=== PATIENT | female | born 1940 | race Caucasian/White ===

== ENCOUNTER 2017-10-13 10:34 | Inpatient (IN) | payer MEDICARE, MEDICAID ==
[~2017-10-13] VITALS: Ht 157.5 cm; Wt 83.9 kg
[2017-10-13 10:43] VITALS: BP 122/41
--- NOTE | 2017-10-13 10:49 | NUR ---
PT AMBULATES WITH ASSISTANCE TO BED 7
--- NOTE | 2017-10-13 10:52 | NUR ---
REPORT GIVEN TO ARYAN CUMMINGS
--- NOTE | 2017-10-13 10:55 | NUR ---
PATIENT PRESENTS TO ED WITH COMPLAINTS OF ABDOMINAL PAIN THAT RADIATES TO BACK. PATIENT STATES SHE HAD DIARRHEA THIS MORNING AND NAUSEA FOR 3 DAYS. BOWEL SOUNDS HYPERACTIVE IN ALL 4 QUADS. PT DENIES ANY FEVER, CP, SOB, OR COUGH AT THIS TIME; PATIENT STATES PAIN OF 8/10 AT THIS TIME; VSS; PATIENT POSITIONED FOR COMFORT; HOB ELEVATED; BEDRAILS UP X2; BED DOWN. ER MD MADE AWARE OF PT STATUS.
[2017-10-13] MEDS ORDERED: ONDANSETRON 4 MG/2 ML VIAL IVP ONE (11:05)
[2017-10-13] MEDS ORDERED: MORPHINE SULFATE 4 MG/ML SYR IVP ONE (11:05)
[2017-10-13] MEDS ORDERED: NACL 0.9% 1,000 ML IV ONE (11:05)
[2017-10-13 11:31] LABS: APPEARANCE,URINE CLEAR (CLEAR); BILIRUBIN,URINE NEGATIVE (NEGATIVE); BLOOD, URINE NEGATIVE (NEGATIVE); COLOR,URINE YELLOW (YELLOW); LEUKOCYTE ESTERASE ,URINE NEGATIVE (NEGATIVE); NITRITE, URINE NEGATIVE (NEGATIVE); PH,URINE 6.5 (5.0-9.0); UGLUCOSE NEGATIVE (NEGATIVE)
[2017-10-13 11:33] LABS: HEMATOCRIT 29.2 % (36-48); HEMOGLOBIN 9.4 g/dL (12.0-16.0); MEAN CORPUSCULAR HEMOGLOBIN 29 pg (27-31); MEAN CORPUSCULAR HGB CONC 32 g/dL (33-37); MEAN CORPUSCULAR VOLUME 88.5 fL (80-94); PLATELET COUNT (AUTO) 237 K/uL (140-450); RED CELL DISTRIBUTION WIDTH 14.2 % (11.6-13.7); WHITE BLOOD COUNT (AUTO) 6.8 K/uL (4.8-10.8)
[2017-10-13 11:34] LABS: BASOPHILS % (AUTO) 1.8 % (0.0-2.0); EOSINOPHILS % (AUTO) 1.6 % (0.0-4.0); LYMPHOCYTES % (AUTO) 25.3 % (20.5-51.1); NEUTROPHILS % (AUTO) 63.3 % (42.2-75.2)
[2017-10-13 11:38] LABS: ANION GAP 8.5 (8-16); CARBON DIOXIDE 27.5 mmol/L (21-32); CHLORIDE 105 mmol/L (98-107); CREATININE 1.6 mg/dL (0.6-1.3); GLUCOSE 105 mg/dL (74-106); SODIUM SERUM 136 mmol/L (136-145); UREA NITROGEN, BLOOD 50 mg/dL (7-18)
[2017-10-13 11:39] LABS: PROTHROMBIN TIME 10.9 secs (10.8-13.4)
[2017-10-13 11:46] LABS: ALBUMIN 3.3 g/dL (3.4-5.0); AMYLASE 54 U/L (25-115); ASPARTATE AMINOTRANSFERASE 10 U/L (15-37); LIPASE 145 U/L (73-393); TOTAL BILIRUBIN 0.2 mg/dL (0.0-1.0)
--- NOTE | 2017-10-13 12:00 | NUR ---
PATIENT TAKEN TO CT
[2017-10-13] MEDS ORDERED: PIPERACILLIN/TAZOBACTAM 3.375 GM in DEXTROSE 5% 50 ML IV ONE (13:00)
[2017-10-13] MEDS ORDERED: PIPERACILLIN/TAZOBACTAM 3.375 GM VIAL IV ONE (13:06)
[2017-10-13] MEDS ORDERED: ONDANSETRON 4 MG/2 ML VIAL IVP PRN (13:55)
[2017-10-13] MEDS ORDERED: MORPHINE SULFATE 2 MG/ML SYR IVP PRN (13:55)
[2017-10-13] MEDS ORDERED: LORazepam 2 MG/ML VIAL IVP PRN (13:55)
[2017-10-13] MEDS ORDERED: LEVO0.0216 PO (14:20)
[2017-10-13] MEDS ORDERED: FENO145T PO (14:20)
[2017-10-13] MEDS ORDERED: OMEP20TC12 PO (14:20)
[2017-10-13] MEDS ORDERED: VALS160T2 PO (14:20)
[2017-10-13] MEDS ORDERED: CLOP75TA55 PO (14:20)
[2017-10-13] MEDS ORDERED: LISI5TAB18 PO (14:20)
[2017-10-13] MEDS ORDERED: IBAN150T PO (14:20)
[2017-10-13] MEDS ORDERED: METF500T PO (14:20)
[2017-10-13] MEDS ORDERED: GABA100C PO (14:20)
[2017-10-13] MEDS ORDERED: MIRABULK PO (14:20)
[2017-10-13] MEDS ORDERED: SOLI10TA PO (14:20)
[2017-10-13] MEDS ORDERED: COROTSUS OT (14:20)
--- NOTE | 2017-10-13 15:21 | NUR ---
PT TAKEN TO FLOOR BY ARYAN CUMMINGS AND LULU BETANCOURT
--- NOTE | 2017-10-13 15:25 | NUR ---
Patient will be admitted to care of dr. phillips. Admited to [facility]. Will go to [facility]. Belongings list completed. Report to ARYAN DUNN.
--- NOTE | 2017-10-13 15:30 | NUR ---
RECEIVED PT REPORT FROM ER NURSE AT BEDSIDE. PT IS AAOX4. CC: ABD PAIN. GEN WEAKNESS. DX MISPLACED BILIARY STENT. IV NOTED TO RIGHT HAND 24 G, INTACT AND ASYMPTOMATIC. 1L NS BOLUS RECEIVED IN ER. SKIN INTACT, NO ACTIVE WOUND. VITALS TAKEN, MRSA SCREENING DONE. BED IN LOWEST POSITION. FALLS PRECAUTIONS IN PLACE. CALL LIGHT WITHIN REACH.
[2017-10-13] MEDS: DEXT 5% /NACL 0.9% 1,000 ML IV SCH (15:40)
--- NOTE | 2017-10-13 16:00 | NUR ---
ADMISSION PAPERWORK COMPLETED WITH THE HELP FROM SOURCING MANAGER PHONE. SOURCING MANAGER #[phone].
[2017-10-13] MEDS: MORPHINE SULFATE 4 MG/ML SYR IVP PRN (16:18)
[2017-10-13 16:30] VITALS: BP 110/40
--- NOTE | 2017-10-13 16:30 | NUR ---
SPOKE WITH DR MCMAHON. REPORTED PT C/O RIGHT SHOULDER PAIN. SHE STATED THAT ER NURSE GIVE HER SOME MEDICATION IN HER RIGHT HAND IV. AFTERWARDS, SHE FELT BURNING IN THER SHOULDER AND AFTER SHE WOKE UP, SHE COULDN'T LIFT UP THE ARM DUE TO THE PAIN. DR MCMAHON ORDERED TROP DRAW AND X RAY SHOULDER.
--- NOTE | 2017-10-13 17:00 | NUR ---
SPOKE WITH DR MCFARLANE, NEPHRO SPECIALIST. REPORTED BUN 50 CREAT 1.6, MD ORDERED HANKINS AND STRICT I/O AND URINE SODIUM.
--- NOTE | 2017-10-13 17:40 | NUR ---
NURSE AR PUT IN THE HANKINS. PT TOLERATED WELL.
[2017-10-13] MEDS ORDERED: DEXTROSE 50% 50 ML SYR IVP PRN (17:55)
[2017-10-13 18:01] LABS: ANION GAP 11.2 (8-16); CARBON DIOXIDE 25.3 mmol/L (21-32); CHLORIDE 107 mmol/L (98-107); CREATININE 1.5 mg/dL (0.6-1.3); GLUCOSE 108 mg/dL (74-106); POTASSIUM 4.5 mmol/L (3.5-5.1); SODIUM SERUM 139 mmol/L (136-145); UREA NITROGEN, BLOOD 44 mg/dL (7-18)
--- NOTE | 2017-10-13 18:30 | NUR ---
PT STATED HER ARM FELT A LOT BETTER. SHE LIFTED UP HER ARM. BOTH HAND ENVIRONMENTAL HEALTH AND SAFETY LEADER HAS BEEN EQUAL STRENGTH SINCE SHE GOT TO THE FLOOR.
--- NOTE | 2017-10-13 19:30 | NUR ---
ENDORSED PT TO SENIOR CLINICAL STUDY MANAGER RN. PT IN STABLE CONDITION.
--- NOTE | 2017-10-13 19:31 | NUR ---
RECEIVED REPORT FROM DAYSHIFT NURSE AT BEDSIDE FOR CONTINUITY OF CARE. PT AAOX4 PAL[place]AN SPEAKING ONLY. PT HAS HANKINS IN PLACE IS FALL RISK. IV NOTED RIGHT HAND 24G D5 NACL 50ML/HR. BLE PITTING EDEMA +2. SKIN INTACT. NPO. BED LOWERED CALL LIGHT WITHIN REACH WILL CONTINUE TO MONITOR.
--- NOTE | 2017-10-13 20:00 | NUR ---
PT AWARE OF NPO STATUS AND STRICT I & O STATUS. WILL CONTINUE TO MONITOR.
[2017-10-13 20:01] VITALS: BP 117/35
[2017-10-13] MEDS: BLOOD GLUCOSE MONITORING 1 DEV DEV FS SCH (20:36)
[2017-10-13] MEDS: PIPER/TAZO 2.25GM/D5W PREMIX 50 ML IV SCH (20:36)
[2017-10-13] MEDS ORDERED: PIPERACILLIN/TAZOBACTAM 2.25 GM in DEXTROSE 5% 50 ML IV SCH (21:00)
[2017-10-14] VITALS: BP 121/41
--- NOTE | 2017-10-14 02:03 | NUR ---
DR MCMAHON STATED DR COOK WILL PERFORM ERCP AND CONSENT HAS BEEN SIGNED AND IN PT CHART. UNAWARE OF TIME OF PROCEDURE.
[2017-10-14] MEDS: PIPER/TAZO 2.25GM/D5W PREMIX 50 ML IV SCH ×3 (05:28→21:03)
[2017-10-14] MEDS: BLOOD GLUCOSE MONITORING 1 DEV DEV FS SCH ×4 (05:28→20:18)
[2017-10-14 05:56] VITALS: BP 111/43
--- NOTE | 2017-10-14 07:15 | NUR ---
ENDORSED REPORT TO DAYSHIFT NURSE AT BEDSIDE FOR CONTINUITY OF CARE.
--- NOTE | 2017-10-14 07:30 | NUR ---
RECEIVED PT REPORT FROM RETAIL COORDINATOR NURSE AT BEDSIDE. PT IS AAOX4. DENIES PAIN AT THIS TIME. IV NOTED TO RIGHT HAND 24 G, INTACT AND ASYMPTOMATIC, INFUSING NS 50ML/HR. SKIN INTACT, NO ACTIVE WOUND. VITALS TAKEN. BED IN LOWEST POSITION. FALLS PRECAUTIONS IN PLACE. CALL LIGHT WITHIN REACH.
[2017-10-14 08:00] VITALS: BP 114/45
--- NOTE | 2017-10-14 08:59 | NUR ---
PATIENT HAS BEEN SCREENED AND CATEGORIZED MODERATE NUTRITION RISK. PATIENT WILL BE SEEN WITHIN 3-5 DAYS OF ADMISSION. 10/16/17 10/18/[address]
[2017-10-14 09:26] LABS: BASOPHILS % (AUTO) 0.6 % (0.0-2.0); EOSINOPHILS # (AUTO) 0.1 K/uL (0-0.4); EOSINOPHILS % (AUTO) 1.6 % (0.0-4.0); HEMOGLOBIN 9.3 g/dL (12.0-16.0); LYMPHOCYTES # (AUTO) 1.1 K/uL (2.5-16.5); LYMPHOCYTES % (AUTO) 16.6 % (20.5-51.1); MEAN CORPUSCULAR HEMOGLOBIN 29 pg (27-31); MEAN CORPUSCULAR HGB CONC 32 g/dL (33-37); MEAN CORPUSCULAR VOLUME 89.3 fL (80-94); MONOCYTES # (AUTO) 0.5 K/uL (0.8-1.0); MONOCYTES % (AUTO) 8.2 % (1.7-9.3); NEUTROPHILS # (AUTO) 4.7 K/uL (1.8-7.7); PLATELET COUNT (AUTO) 192 K/uL (140-450); RED BLOOD CELL COUNT(AUTO) 3.24 MIL/uL (4.20-5.40); RED CELL DISTRIBUTION WIDTH 14.7 % (11.6-13.7); WHITE BLOOD COUNT (AUTO) 6.4 K/uL (4.8-10.8)
[2017-10-14 09:40] LABS: ALBUMIN 3.7 g/dL (3.4-5.0); ANION GAP 1.9 (8-16); ASPARTATE AMINOTRANSFERASE 77 U/L (15-37); CARBON DIOXIDE 27.5 mmol/L (21-32); CHLORIDE 105 mmol/L (98-107); CREATININE 1.5 mg/dL (0.6-1.3); GLUCOSE 129 mg/dL (74-106); POTASSIUM 4.4 mmol/L (3.5-5.1); SODIUM SERUM 130 mmol/L (136-145); TOTAL BILIRUBIN 0.4 mg/dL (0.0-1.0); UREA NITROGEN, BLOOD 33 mg/dL (7-18)
--- NOTE | 2017-10-14 09:59 | NUR ---
SUYAPA NOTE INITIAL REVIEW FAXED TO [facility] [phone] ANTONIO # [phone]. SPOKE WITH KACEY ALVAREZ AND GAVE HER A VERBAL CLINICAL UPDATE ON THE PATIENT. Addendum: 10/14/17 at 1014 by Fabiana Osman CM FAXED ORDER HIGH RISK CLINIC FF UP, HOME HEALTH EV TO [facility] [phone] ANTONIO # [phone]
[2017-10-14] MEDS: MORPHINE SULFATE 4 MG/ML SYR IVP PRN (10:49)
--- NOTE | 2017-10-14 11:42 | NUR ---
SUYAPA NOTE PER KACEY ALVAREZ PH# [phone], SHE WILL ARRANGE PATIENT'S HIGH RISK CLINIC FOLLOW UP AND HOME HEALTH EV Addendum: 10/14/17 at 1222 by Fabiana Osman CM NO DC ORDER AT THIS TIME. PER 'S ORDER, SEND MED RECONCILIATION TO FAX [phone]. KACEY ALVAREZ PH# [phone]. CHARGE NURSE RAFI BARKER
[2017-10-14 12:00] VITALS: BP 116/44
--- NOTE | 2017-10-14 12:30 | NUR ---
MADE PT AWARE THE ERCP IS AT 1400. PT VERBALIZED UNDERSTANDING. NO QUESTIONS AT THIS TIME.
[2017-10-14] MEDS: DEXT 5% /NACL 0.9% 1,000 ML IV SCH (12:45)
--- NOTE | 2017-10-14 13:30 | NUR ---
PT HAS BEEN TRANSPORTED TO [place].
--- NOTE | 2017-10-14 14:16 | NUR ---
SUYAPA ENAMORADO RECEIVED CALL FROM TARA OF [facility]# [phone] WHO STATED THAT THEY HAVE SPOKEN WITH KACEY ALVAREZ AND [facility] IS ACCEPTING THE PATIENT AND WILL HAVE A NURSE TO SEE PATIENT WHEN DISCHARGED. I CONFIRMED THIS WITH KACEY ALVAREZ AND I ALSO INFORMED CHARGE NURSE RAFI TO GIVE [facility] TARA/CHRIS PH# [phone] A CALL TO INFORM THEM ONCE WE HAVE A DC ORDER. SPOKE WITH KACEY ALVAREZ PH# [phone] TO FOLLOW UP ON SCHEDULE FOR HIGH RISK CLINIC FOLLOW UP. PER KACEY ALVAREZ SHE IS STILL WORKING ON IT AND I GAVE HER THE NUMBER TO THE NURSING STATION WHERE PATIENT IS IN CASE SHE WILL HAVE A SCHEDULE FOR HIGH RISK CLINIC FOLLOW UP. KACEY ALVAREZ SAID THAT KACEY WILL CALL THE PATIENT AND KACEY ALVAREZ WILL ALSO CALL THE NURSING STATION WHERE PATIENT IS ONCE SHE HAS THE SCHEDULE FOR THE PATIENT'S HIGH RISK CLINIC FOLLOW UP. CHARGE NURSE RAFI AWARE.
[2017-10-14] MEDS ORDERED: ONDANSETRON 4 MG/2 ML VIAL IVP PRN (14:45)
[2017-10-14] MEDS ORDERED: HYDROmorphone 1 MG/ML AMP IVP PRN (14:45)
[2017-10-14] MEDS ORDERED: BLOOD GLUCOSE MONITORING 1 DEV DEV FS SCH (14:45)
--- NOTE | 2017-10-14 15:40 | NUR ---
PT BACK TO FLOOR. NEW IV ON RIGHT NECK. FLUSHED, BLOOD RETURN GOOD. DC'D IV CATH ON THE RIGHT HAND, TIP INTACT, PRESSURE APPLIED.
[2017-10-14 16:00] VITALS: BP 130/62
--- NOTE | 2017-10-14 16:00 | NUR ---
CHARGE NURSE RAFI CALLED DR COOK, PT WILL BE STAYING FOR [facility] TOMORROW IF STABLE. MADE DR MCMAHON AWARE.
[2017-10-14] MEDS: INSULIN LISPRO SLIDING SCALE 100 UNITS/ML VIAL SUBQ PRN ×2 (17:45→20:20)
--- NOTE | 2017-10-14 19:24 | NUR ---
ENDORSE PT TO CENTER MEDICAL AND LAB DIRECTOR. PT IN STALE CONDITION.
--- NOTE | 2017-10-14 19:25 | NUR ---
REPORT RECEIVED FROM AM SHIFT AT BEDSIDE. PT IN STABLE CONDITION. AAOX4. INTRODUCED SELF TO PT AND FAMILY. BOARD UPDATED. IV SITE PATENT AND INTACT 22G ON THE RIGHT NECK RUNNING D5NS AT 50ML/HR. SKIN WARM, DRY, AND INTACT WITH NO OPEN WOUNDS. HANKINS IS DRAINING PROPERLY. TELE MONITORING. BED LOCKED IN LOW POSITION. CALL CLEMENTS WITHIN REACH. WILL CONTINUE TO MONITOR.
[2017-10-14 20:00] VITALS: BP 138/60
--- NOTE | 2017-10-14 20:20 | NUR ---
BS 179. HUMALOG 2 UNITS GIVEN.
--- NOTE | 2017-10-14 21:00 | NUR ---
SEBAS RUBIO. NEURONTIN AND LACTULOSE GIVEN. PT TOLERATED WELL.
[2017-10-14] MEDS: LACTULOSE 20 GM/30 ML UDC PO SCH (21:03)
[2017-10-14] MEDS: GABAPENTIN 100 MG CAP PO SCH (21:03)
--- NOTE | 2017-10-14 23:30 | NUR ---
VS TAKEN. PT SLEEPING BUT EASILY AROUSABLE. WILL CONTINUE TO MONITOR.
[2017-10-15] VITALS: BP 129/57
--- NOTE | 2017-10-15 02:00 | NUR ---
PT SLEEPING LEFT LATERAL. NO S/S OF DISTRESS SEEN. WILL CONTINUE TO MONITOR.
[2017-10-15 04:00] VITALS: BP 150/57
[2017-10-15] MEDS: PIPER/TAZO 2.25GM/D5W PREMIX 50 ML IV SCH (04:24)
[2017-10-15] MEDS: BLOOD GLUCOSE MONITORING 1 DEV DEV FS SCH ×2 (05:55→11:30)
[2017-10-15] MEDS: DEXT 5% /NACL 0.9% 1,000 ML IV SCH (05:55)
--- NOTE | 2017-10-15 05:55 | NUR ---
BS 123. NO INSULIN COVERAGE NEEDED. SYNTHROID GIVEN. PT TOLERATED WELL.
[2017-10-15] MEDS ORDERED: LEVOTHYROXINE 0.025 MG TAB PO SCH (06:30)
--- NOTE | 2017-10-15 07:20 | NUR ---
REPORT GIVEN TO AM NURSE. PT IN STABLE CONDITION.
--- NOTE | 2017-10-15 07:25 | NUR ---
RECEIVED PT ON BED, AAOX4. NO SOB NOTED. NO C/O PAIN AT THIS TIME. IV TO RT NECK PATENT AND INTACT. CHEST CLEAR. ABDOMEN SOFT, BOWEL SOUNDS PRESENT. WITH HANKINS DRAINING MODERATE AMOUNTS OF CLEAR YELLOW URINE. + 1 EDEMA NOTED ON BLE. INSTRUCTED PT TO CALL FOR ASSISTANCE, CALL LIGHT WITHIN REACH, PT VERBALIZED UNDERSTANDING.
[2017-10-15 07:48] LABS: BASOPHILS % (AUTO) 0.5 % (0.0-2.0); EOSINOPHILS # (AUTO) 0.2 K/uL (0-0.4); EOSINOPHILS % (AUTO) 2.4 % (0.0-4.0); HEMATOCRIT 28.4 % (36-48); HEMOGLOBIN 9.2 g/dL (12.0-16.0); LYMPHOCYTES # (AUTO) 1.4 K/uL (2.5-16.5); LYMPHOCYTES % (AUTO) 21.7 % (20.5-51.1); MEAN CORPUSCULAR HEMOGLOBIN 29 pg (27-31); MEAN CORPUSCULAR HGB CONC 32 g/dL (33-37); MEAN CORPUSCULAR VOLUME 89.2 fL (80-94); MONOCYTES # (AUTO) 0.4 K/uL (0.8-1.0); MONOCYTES % (AUTO) 6.9 % (1.7-9.3); NEUTROPHILS # (AUTO) 4.4 K/uL (1.8-7.7); NEUTROPHILS % (AUTO) 68.5 % (42.2-75.2); PLATELET COUNT (AUTO) 188 K/uL (140-450); RED BLOOD CELL COUNT(AUTO) 3.18 MIL/uL (4.20-5.40); RED CELL DISTRIBUTION WIDTH 14.9 % (11.6-13.7); WHITE BLOOD COUNT (AUTO) 6.5 K/uL (4.8-10.8)
[2017-10-15 08:00] VITALS: BP 125/55
[2017-10-15 08:10] LABS: ALBUMIN 2.9 g/dL (3.4-5.0); ANION GAP 10.2 (8-16); ASPARTATE AMINOTRANSFERASE 31 U/L (15-37); CARBON DIOXIDE 26.8 mmol/L (21-32); CHLORIDE 107 mmol/L (98-107); CREATININE 1.3 mg/dL (0.6-1.3); GLUCOSE 121 mg/dL (74-106); SODIUM SERUM 140 mmol/L (136-145); TOTAL BILIRUBIN 0.4 mg/dL (0.0-1.0); UREA NITROGEN, BLOOD 22 mg/dL (7-18)
[2017-10-15] MEDS: LACTULOSE 20 GM/30 ML UDC PO SCH (09:00)
[2017-10-15] MEDS ORDERED: POLYETHYLENE GLYCOL 17 GM/PKT PO SCH (09:00)
[2017-10-15] MEDS ORDERED: PANTOPRAZOLE 40 MG TABEC PO SCH (09:00)
[2017-10-15] MEDS: GABAPENTIN 100 MG CAP PO SCH (10:14)
[2017-10-15] MEDS ORDERED: [UNRECOGNIZED DRUG - CODE] PO (10:39)
[2017-10-15] MEDS ORDERED: ACETAMINOPHEN 325 MG TAB PO PRN (10:40)
--- NOTE | 2017-10-15 11:00 | NUR ---
NOTIFIED DR. MCMAHON THAT THE PHYSICAL THERAPIST TODAY HAS ALREADY LEFT AND NO RESIDENTIAL CASE MANAGER TO PROVIDE THE WALKER. CALLED CHRIS AT [facility] AND NOTIFIED WITH THE DISCHARGE ORDER. CHRIS STATED TO FAXED THE ACTUAL D/C ORDERS. TENZIN-HOT TOP LINER NURSE FAXED THE PAPERS WORKS TO CHRIS, CONFIRMATION ATTACHED TO PT'S CHART.
--- NOTE | 2017-10-15 11:36 | NUR ---
HANKINS CATHETER DISCONTINUED, DRAINED 600 MLS OF CLEAR YELLOW URINE. PT TOLERATED PROCEDURE WELL.
[2017-10-15 12:00] VITALS: BP 122/47
[2017-10-15] MEDS: INSULIN LISPRO SLIDING SCALE 100 UNITS/ML VIAL SUBQ PRN (13:21)
--- NOTE | 2017-10-15 13:45 | NUR ---
DISCHARGE INSTRUCTIONS GIVEN TO PT AND DAUGHTER WHICH VERBALIZED FULL UNDERSTANDING OF THE INSTRUCTIONS GIVEN AND THE NEED TO FOLLOW UP WITH PCP, [facility] AND DR. COOK WITHIN 1-2 WEEKS. ARM BANDS AND IV REMOVED, CANNULA TIP INTACT.
--- NOTE | 2017-10-15 13:55 | NUR ---
PT WHEELED TO THE FRONT LOBBY IN STABLE CONDITION. NO SOB NOTED. NO COMPLAINTS MADE. PT IS D/C HOME WITH DAUGHTER.
--- NOTE | 2017-10-18 08:58 | NUR ---
MISSING END TIME: 10/13/2017: MAITESYN START 1313 END TIME 1400 TOTAL AMOUNT INFUSED 49ML
== END 2017-10-15 13:55 | disposition home or self-care (01) | DRG 445 ==
LOC: MED 10:34 → MTU 13:52
PROVIDERS: ADMIT Hospitalist; ATTEND Hospitalist
PROC: 0FPB8DZ Removal of Intraluminal Device from Hepatobiliary Duct, Via Natural or Artificial Opening Endoscopic (ICD-10-PCS; 2017-10-14)
PROC: BF131ZZ Fluoroscopy of Gallbladder and Bile Ducts using Low Osmolar Contrast (ICD-10-PCS; 2017-10-14)
PROC: 0FC98ZZ Extirpation of Matter from Common Bile Duct, Via Natural or Artificial Opening Endoscopic (ICD-10-PCS; principal; 2017-10-14 14:00)
DX: K80.50 Calculus of bile duct without cholangitis or cholecystitis without obstruction (principal); N17.9 Acute kidney failure, unspecified; E11.9 Type 2 diabetes mellitus without complications; I10 Essential (primary) hypertension; D64.9 Anemia, unspecified; Z90.710 Acquired absence of both cervix and uterus; E78.5 Hyperlipidemia, unspecified; D63.8 Anemia in other chronic diseases classified elsewhere; K21.9 Gastro-esophageal reflux disease without esophagitis; N39.41 Urge incontinence; M81.0 Age-related osteoporosis without current pathological fracture
CPT/HCPCS: 36415; 71045; 73020; 76705; 76770; 80048; 80053; 81003; 82150; 82728; 82948; 83540; 83690; 84300; 84484; 85025; 85610; 85730; 87081; 93005; 96374; 96375; 99285; C1769; C1773; J1815; J2270; J2405; J2543; J7042; Q0092